=== PATIENT | male | born 1965 | race Caucasian/White ===

== ENCOUNTER 2023-09-20 17:11 | Emergency (ER) | payer OTHER, SELFPAY ==
[2023-09-20 17:12] VITALS: BP 148/94; PULSE 67; RESP 15; TEMP 36.6; O2SAT 96; BMI 27.3
--- NOTE | 2023-09-20 17:15 | CT_ITS ---
STUDY: CT BRAIN WITHOUT CONTRAST REASON FOR EXAM: Male, 58 years old. fall RADIATION DOSAGE (If Supplied By Facility): CTDIvol = ( 44.99 ) mGy, DLP = ( 796.11 ) mGycm TECHNIQUE: Transaxial CT imaging of the brain was performed without administration of intravenous contrast material. Individualized dose optimization techniques were used for this CT. COMPARISON: No relevant priors. FINDINGS: Normal soft tissue structures. Normal calvarium. Normal size ventricles and extra-axial spaces for the patient''s age. There are areas of decreased attenuation within the white matter tracts of the supratentorial brain, consistent with mild microvascular disease changes. Normal basal ganglia and thalami. Normal brainstem. Normal cerebellum. There is no intracranial hemorrhage. There are no findings of an acute ischemic infarction. Mucosal thickening involving the bilateral maxillary, ethmoids and frontal sinuses most compatible with sequela of sinusitis. CT/Brain/Head without Contrast IMPRESSION: Mild microangiopathic white matter changes, otherwise no acute intracranial hemorrhage or space-occupying lesion. Electronically Signed: Naya Trujillo MD at 17:42 EST ,
--- NOTE | 2023-09-20 17:15 | CT_ITS ---
CT/Spine Cervical without Contras IMPRESSION: Multilevel degenerative disease as described with no acute fracture or subluxation. Electronically Signed: Naya Trujillo MD at 17:50 EST ,
--- NOTE | 2023-09-20 17:23 | EDS_ITS ---
HPI <TAYLOR Abdi - Last Filed: 09/20/23 19:14> History of Present Illness Chief Complaint: ETOH Intox Narrative Narrative: Patient 58-year-old male with history of prediabetes, hypertension presents to the emergency department with a fall related to alcohol abuse. Patient was at a bar, where he had too much to drink, he then fell backwards, ambulance were called. Patient states he has some neck pain, some back of his head pain. There was no LOC. Patient is no obvious signs of any trauma. Patient does appear grossly intoxicated. However he is alert and oriented and able answer questions. He does have slurred speech per EMS, patient does drink regularly. PFSH <TAYLOR Abdi - Last Filed: 09/20/23 19:14> [facility] Home Medications NK 09/20/23 [History Last Taken Unknown] Allergy/AdvReac Type Severity Reaction Status Date / Time No Known Allergies Allergy Verified 09/20/23 17:16 Social History Smoking Status: Current every day smoker tobacco type: cigarettes ROS <TAYLOR Abdi - Last Filed: 09/20/23 19:14> ROS ED ROS Narrative Constitutional: Negative for fever, chills, weight loss, weakness Eyes: Negative for vision loss, vision change, double vision ENT: Negative for any sore throat, ear pain, congestion Cardiovascular: Negative for any chest pain, tightness, palpitations Respiratory: Negative for any cough, sputum production, hemoptysis, dyspnea, dyspnea on exertion, orthopnea Gastrointestinal: Negative for any abdominal pain, nausea, vomiting, diarrhea, constipation, blood in stool, blood in vomit : Negative for any urinary frequency, dysuria, retention, blood in urine Muscle skeletal: Negative for any myalgias, arthralgias, back pain. Positive for neck pain Neurological: Negative for any syncope, paresthesias, dizziness. Positive for headache Skin: Negative for any rashes, lumps, itching, abrasions, lacerations Psychiatric: Negative for any depression, anxiety, stress, suicidal ideation, homicidal ideation Hematologic: Negative for any easy bruising, excessive bruising, easy bleeding Allergies: Negative for any eczema, hives, rash EXAM <TAYLOR Abdi - Last Filed: 09/20/23 19:14> Physical Exam Narrative Exam Narrative: Vital signs reviewed. Patient alert and oriented x 4. Patient does appear intoxicated. Patient experiences slurred speech HEET: Head normocephalic atraumatic, TMs clear bilaterally. Posterior pharynx is clear, moist mucous membranes. Nares clear bilaterally. Pupils are equal, reactive, slightly slow to respond. Neck: Supple with no lymphadenopathy. No signs of meningismus. Patient does have some tenderness to the right and left side of the neck. No midline spinal tenderness. Cardiac: Regular rate and rhythm no murmurs gallops or rubs, equal peripheral pulses bilaterally. Respiratory: Lungs clear to auscultation bilaterally. No chest tenderness. Abdomen: Soft, nontender, nondistended. No abdominal bruit or pulsatile masses. No hepatosplenomegaly Extremities: No peripheral edema, no signs of gross trauma or deformity. Active full range of motion of all extremities. Neuro: Cranial nerves II through XII intact, no focal neurological deficits. NIH stroke scale 0 Skin: Clean dry and intact with no rash, purpura, petechiae, vesicles or pustules. Backs/flank: No CVA tenderness, no midline spinal tenderness, no deformity. Psych: Normal mood and affect. No SI, HI or acute psychosis. Const Vital Signs: 09/20/23 17:12 Temperature 97.8 F Temperature Source Oral Pulse Rate 67 Respiratory Rate 15 Blood Pressure 148/94 H Blood Pressure Mean 112 Pulse Ox 96 Oxygen Delivery Method Room Air <Dr. Guido Pena DO - Last Filed: 09/20/23 21:41> Physical Exam Const Vital Signs: 09/20/23 17:12 Temperature 97.8 F Temperature Source Oral Pulse Rate 67 Respiratory Rate 15 Blood Pressure 148/94 H Blood Pressure Mean 112 Pulse Ox 96 Oxygen Delivery Method Room Air [facility] <TAYLOR Abdi - Last Filed: 09/20/23 19:14> [facility] Radiography Diagnostic Testing: Clinical Impression(s) from Imaging Studies Brain CT 09/20/23 17:15 IMPRESSION: Mild microangiopathic white matter changes, otherwise no acute intracranial hemorrhage or space-occupying lesion. Electronically Signed: Naya Trujillo MD at 17:42 EST , Cervical Spine CT 09/20/23 17:15 IMPRESSION: Multilevel degenerative disease as described with no acute fracture or subluxation. Electronically Signed: Naya Trujillo MD at 17:50 EST , Treatment and Re-Evaluation :: Patient appears to be no obvious distress, vital signs are stable presenting to the emergency department after mechanical fall from alcohol intoxication from a stool. Patient is alert and oriented, patient is moving all extremities, however patient is grossly intoxicated. Patient received a CT scan of the br ain, cervical spine. Differential diagnosis includes closed head injury, concussion, alcohol intoxication, skull fracture, intracranial hemorrhage, cervical strain, cervical fracture. At this time, patient is no distress. Patient will need to have a sober ride or sober up clinically. All radiologic examinations were read, reviewed by the emergency department attending. From these reads, a plan of care will be put in place. Patient's CT scan of the brain shows mild microangiopathic white matter changes, no acute intracranial hemorrhage or space-occupying lesion. Cervical spine shows degenerative disc disease, no acute fracture or subluxation. Patient nurse was able to have the patient call for sober ride. The sober ride to be coming from [place]. He will need to come in, the patient need to ambulate, the patient will then be able to go home with a sober ride. I spoke with the patient at length, the patient needs to decrease his alcohol use, he understands this. He does not want any help at this time. He would like to follow-up outpatient, all questions answered, patient stable for discharge. <Dr. Guido Pena, DO - Last Filed: 09/20/23 21:41> [facility] Narrative Medical decision making narrative: Attending note: Patient seen and evaluated with mental health counselor. I perform my own [id number] evaluation. I agree with the plan of work-up. Brought in by EMS for fall off a barstool. He states drinking heavily today. Drinks 3-4 times a week. His birthday was 2 days ago. He reports no loss of consciousness. Reports headache and neck pain. No extremity pain. No chest pains. Exam intoxicated however answering questions. Slight scalp contusion there is no lacerations. No hemotympanums. There is paracervical tenderness. No midline thoracic or lumbar tenderness. No chest wall tenderness. Symmetric breath sounds bilaterally. Active full range of all 4 extremities. Negative logroll of the lower extremities. Trauma scans head and neck ordered for evaluation to rule out fracture or intracranial hemorrhage. Results are negative. Will monitor for clinical sober and is order for sober ride home. Radiography Diagnostic Testing: Clinical Impression(s) from Imaging Studies Brain CT 09/20/23 17:15 IMPRESSION: Mild microangiopathic white matter changes, otherwise no acute intracranial hemorrhage or space-occupying lesion. Electronically Signed: Naya Trujillo MD at 17:42 EST Reading Location ID and State: [id number] / [place] , Service support , Cervical Spine CT 09/20/23 17:15 IMPRESSION: Multilevel degenerative disease as described with no acute fracture or subluxation. Electronically Signed: Naya Trujillo MD at 17:50 EST Reading Location ID and State: [id number] / [place] , Service support , Discharge Plan Triage Chief Complaint: ETOH Intox ED Midlevel Provider: Mario Thomas ED Provider: Guido Pena Dx/Rx/DC Orders Clinical Impression: Alcohol intoxication, CHI (closed head injury), Neck muscle strain Instructions: ED Alcohol Intoxication, ED Head Injury (Adult), ED Neck Sprain or Strain Prescriptions: No Action NK Primary Care Provider: [place] Activity Restrictions/Additional Instructions: CT your brain and cervical spine are negative for any fracture or intracranial hemorrhage. You were intoxicated on arrival. Use Tylenol as needed. Follow-up with your doctor. Disposition Disposition: Home, Self Care Discharge Date/Time: 09/20/23 19:38
== END 2023-09-20 19:38 | disposition home or self-care (01) ==
PROVIDERS: Emergency Provider Emergency Medicine; Visit Provider Emergency Medicine
DX: S09.90XA Unspecified injury of head, initial encounter (principal); F10.129 Alcohol abuse with intoxication, unspecified; I10 Essential (primary) hypertension; W19.XXXA Unspecified fall, initial encounter; S16.1XXA Strain of muscle, fascia and tendon at neck level, initial encounter; F17.210 Nicotine dependence, cigarettes, uncomplicated; Y92.59 Other trade areas as the place of occurrence of the external cause
CPT/HCPCS: 70450; 72125; 99282